=== PATIENT | female | born 1985 | race Caucasian/White ===

== ENCOUNTER 2018-05-22 17:45 | Inpatient (IN) | payer OTHER ==
[~2018-05-22] VITALS: Ht 160 cm; Wt 45.8 kg
[2018-05-22 18:51] LABS: BASOPHILS # (AUTO) 0.1 (0.0-0.1); BASOPHILS % 0.7 % (0.0-1.0); EOSINOPHILS # (AUTO) 0.1 (0.0-0.4); EOSINOPHILS % 1.6 % (0.0-6.0); HEMATOCRIT 36.7 % (34.2-44.1); HEMOGLOBIN 12.5 g/dL (12.0-16.0); LYMPHOCYTES # (AUTO) 2.7 (1.0-3.2); LYMPHOCYTES % 32.6 % (18.0-39.1); MEAN CORPUSCULAR HEMOGLOBIN 30.5 pg (28-32); MEAN CORPUSCULAR HGB CONC 34.1 g/dL (31-35); MEAN CORPUSCULAR VOLUME 89.5 fL (81-99); MONOCYTES # (AUTO) 0.8 (0.2-0.8); MONOCYTES % 9.2 % (4.4-11.3); NEUTROPHILS # (AUTO) 4.6 (2.1-6.9); NEUTROPHILS % 55.7 % (38.7-80.0); PLATELET COUNT 283 x10e3/uL (140-360); RED CELL DISTRIBUTION WIDTH 11.8 % (11.7-14.4)
[2018-05-22] MEDS ORDERED: FOCALIN10 MG PO (18:56)
[2018-05-22] MEDS ORDERED: XANAX0.5 MG PO (18:56)
[2018-05-22] MEDS ORDERED: VYVANSE60 MG PO (18:56)
[2018-05-22] MEDS ORDERED: AMBIEN10 MG PO (18:56)
[2018-05-22 19:14] LABS: ALANINE AMINOTRANSFERASE 16 IU/L (0-55); ALBUMIN 3.6 g/dL (3.5-5.0); ALBUMIN/GLOBULIN RATIO 1.3 (0.8-2.0); ALKALINE PHOSPHATASE 36 IU/L (40-150); ANION GAP 14.9 mmol/L (8-16); BLOOD UREA NITROGEN 17 mg/dL (7-26); BUN/CREATININE RATIO 19 (6-25); CALCIUM 8.7 mg/dL (8.4-10.2); CARBON DIOXIDE 22 mmol/L (22-29); CHLORIDE 103 mmol/L (98-107); CREATINE KINASE 983 IU/L (29-168); CREATININE, SERUM 0.91 mg/dL (0.57-1.11); EST GLOMERULAR FILTRATION RATE > 60 ML/MIN (60-); POTASSIUM 4.9 mmol/L (3.5-5.1); SODIUM 135 mmol/L (136-145)
[2018-05-22 19:15] LABS: GLUCOSE 58 mg/dL (74-118)
[2018-05-22 19:26] LABS: AMPHETAMINES SCREEN,URINE NEGATIVE (NEGATIVE); BENZODIAZEPINES SCREEN,URINE POSITIVE (NEGATIVE); PHENCYCLIDINE SCREEN,URINE NEGATIVE (NEGATIVE)
[2018-05-22] MEDS: SODIUM CHLORIDE 0.9% 1000ML 1,000 ML IV SCH (20:00)
[2018-05-22 20:58] VITALS: BP 132/84
--- NOTE | 2018-05-22 21:15 | Diagnostic Imaging Report ---
History:Numbness in legs, weakness and aphasia. Comparison studies:None Technique: CT head: Multidetector axial images were obtained from the foramen magnum to the vertex without contrast. The images were reconstructed using brain and bone algorithms. Thin section brain images were reformatted into coronal and sagittal planes. Axial images were obtained from the skull base to the vertex. Coronal and sagittal images reconstructed from the axial data. Multi-planar and 3-D reconstructed images were obtained. Dose modulation, iterative reconstruction, and/or weight based adjustment of the mA/kV was utilized to reduce the radiation dose to as low as reasonably achievable. Intravenous contrast: 100 cc of Isovue 370. Findings: CT head: Skull: No lytic or blastic. lesions. No surgical changes. Incidental 2 cm fat density lesion in left anterior temporal scalp, represents a lipoma. Parenchyma: No abnormal density. No acute hemorrhage, mass or acute major vascular territorial infarct. Arteries: No density suggestive of thrombosis. Dural sinuses: No abnormal density suggestive of thrombosis. Ventricles: No hydrocephalus or displacement. Extra-axial spaces: No abnormal density. Brain volume: Normal for age. Craniocervical junction: No mass, Chiari malformation, or basilar invagination. Sella: No mass. Paranasal/mastoid sinuses: Imaged portions unremarkable CTA head: Internal carotid arteries: Right: Patent. Left: Patent. Right A1 segment is absent, normal anatomical variant. Vertebral arteries: Patent. Basilar artery: Patent. Posterior cerebral arteries: Patent. Anatomical variants: Anterior communicating artery :Patent Posterior communicating arteries: Not visualized. Vertebral arteries: Codominant. IMPRESSION: CT head: No intracranial abnormality. CTA head: No intracranial vascular abnormality. Preliminary report was given by Dr. Zapata via phone to Dr. Oropeza at 06:15 p.m. on 05/22/2018. Signed by: Dr. Yessenia Armstrong M.D. on 05/22/2018 9:12 PM
[2018-05-22 21:30] VITALS: BP_SYST 132; BP_SYST 158; BP_DIAS 84; BP_DIAS 91
[2018-05-22] MEDS ORDERED: SODIUM CHLORIDE 0.9% 50ML 50 ML ONE (22:24)
[2018-05-22] MEDS ORDERED: IOPAMIDOL 370 MG/ML 200 ML INFUS..BTL INJ ONE (22:24)
[2018-05-23] VITALS: BP 125/66
[2018-05-23] MEDS ORDERED: ZOLPIDEM TARTRATE 10 MG TAB PO PRN (00:30)
[2018-05-23 04:00] VITALS: BP 111/72
[2018-05-23] MEDS: SODIUM CHLORIDE 0.9% 1000ML 1,000 ML IV SCH (06:00)
[2018-05-23 07:53] VITALS: BP 115/64
[2018-05-23] MEDS ORDERED: ALPRAZOLAM 0.5 MG TAB PO PRN ×2 (10:45→20:00)
[2018-05-23 11:00] LABS: BASOPHILS # (AUTO) 0.1 (0.0-0.1); BASOPHILS % 0.8 % (0.0-1.0); EOSINOPHILS # (AUTO) 0.1 (0.0-0.4); HEMATOCRIT 38.1 % (34.2-44.1); HEMOGLOBIN 12.7 g/dL (12.0-16.0); LYMPHOCYTES # (AUTO) 1.4 (1.0-3.2); LYMPHOCYTES % 22.4 % (18.0-39.1); MEAN CORPUSCULAR HEMOGLOBIN 30.1 pg (28-32); MEAN CORPUSCULAR HGB CONC 33.3 g/dL (31-35); MEAN CORPUSCULAR VOLUME 90.3 fL (81-99); MONOCYTES # (AUTO) 0.4 (0.2-0.8); MONOCYTES % 6.9 % (4.4-11.3); NEUTROPHILS # (AUTO) 4.3 (2.1-6.9); NEUTROPHILS % 67.6 % (38.7-80.0); PLATELET COUNT 260 x10e3/uL (140-360); RED BLOOD COUNT 4.22 x10e6/uL (3.6-5.1); RED CELL DISTRIBUTION WIDTH 11.8 % (11.7-14.4)
[2018-05-23] MEDS ORDERED: ALPRAZOLAM 1 MG TAB PO PRN ×2 (11:00→18:00)
[2018-05-23] MEDS ORDERED: GADOBENATE DIMEGLUMINE 1 ML IV ONE (11:02)
[2018-05-23 11:14] LABS: ANION GAP 11.4 mmol/L (8-16); BLOOD UREA NITROGEN 15 mg/dL (7-26); BUN/CREATININE RATIO 18 (6-25); CALCIUM 8.6 mg/dL (8.4-10.2); CARBON DIOXIDE 24 mmol/L (22-29); CHLORIDE 105 mmol/L (98-107); CREATININE, SERUM 0.85 mg/dL (0.57-1.11); EST GLOMERULAR FILTRATION RATE > 60 ML/MIN (60-); GLUCOSE 111 mg/dL (74-118); MAGNESIUM 1.5 MG/DL (1.3-2.1); POTASSIUM 4.4 mmol/L (3.5-5.1); SODIUM 136 mmol/L (136-145)
[2018-05-23 11:26] LABS: CREATINE KINASE 444 IU/L (29-168)
[2018-05-23 12:23] VITALS: BP 134/84
[2018-05-23] MEDS: DEXTROSE 5%/0.9% SOD CHL 1,000 ML IV SCH ×2 (14:00→20:52)
[2018-05-23] MEDS ORDERED: DEXTROSE 50% SYRINGE 50 ML IV PRN (14:15)
--- NOTE | 2018-05-23 15:27 | Consultation ---
DATE OF CONSULTATION: May 23, 2018 ENDOCRINE CONSULTATION PATIENT OF: [place] Thank you very much for referring this patient. HPI: This is a 32-year-old white female who is referred to me for evaluation of hypoglycemia. Patient came to the hospital with a history of extreme weakness, difficulty in walking, and impaired speech. She was seen in the emergency room and at that time, her blood sugar was found to be 54. Patient has had history of gestational diabetes when she had a twin about 7 years back. She does have some family history of diabetes mellitus. Patient has history of ADHD. She does not have any other major medical problems in the past. Presently, the patient complains of some weakness of both lower extremities, which is bilateral. There are no localizing symptoms. PHYSICAL EXAMINATION GENERAL: Today, the patient is alert, awake. She is thin built. VITALS: Her heart rate is around 68 and blood pressure is 120/80 mmHg. HEENT: Essentially unremarkable. Thyroid is palpable. Clinically, she looks near euthyroid. CHEST: Bilateral vesicular breathing. She has mild bronchospasm. CARDIAC: First and second heart sounds. There is no third or fourth heart sound. Ejection systolic murmur, grade 2/6. LABS: Her lab evaluation except for the blood sugar of 54 looks reasonably okay. CLINICAL IMPRESSION 1. Acute onset weakness, rule out transient ischemic attack. 2. Hypoglycemic episode, rule out inappropriate insulin secretion. PLAN: The plan at this time is to do a hemoglobin A1c, thyroid function test. Monitor her blood sugars closely. We will also do an ACTH level and a fasting C-peptide level. Patient is being evaluated by the neurology group as well. Thanks again for referring this patient. I will be following this patient with you. Job#: [id number] LPA
[2018-05-23 15:42] LABS: FREE T4 (FREE THYROXINE) 0.79 ng/dL (0.9-1.8); THYROID STIMULATING HORMONE 1.21 uIU/mL (0.350-4.940)
[2018-05-23 16:58] VITALS: BP 145/78
[2018-05-23] MEDS: INSULIN LISPRO 100 UNIT/1 ML 3ML VIAL SQ SCH ×2 (17:30→20:52)
[2018-05-23] MEDS: FAMOTIDINE 20 MG TAB PO SCH (17:30)
[2018-05-23 20:00] VITALS: BP 134/84
[2018-05-23] MEDS ORDERED: ONDANSETRON HCL INJ 2 MG/ML VIAL IV PRN (20:00)
[2018-05-23] MEDS ORDERED: ACETAMINOPHEN 325 MG TAB PO PRN (20:00)
[2018-05-23] MEDS ORDERED: HYDRALAZINE HCL 20 MG/ML VIAL IV PRN (20:00)
[2018-05-23] MEDS ORDERED: ACETAMINOPHEN/CODEINE 300MG - 30MG TAB PO PRN (20:00)
[2018-05-23] MEDS ORDERED: MIRTAZAPINE 15 MG TAB PO SCH (21:00)
[2018-05-24] VITALS: BP_SYST 112; BP_SYST 123; BP_DIAS 58; BP_DIAS 69
[2018-05-24] MEDS: DEXTROSE 5%/0.9% SOD CHL 1,000 ML IV SCH (01:57)
[2018-05-24 03:27] LABS: BASOPHILS % 0.3 % (0.0-1.0); EOSINOPHILS # (AUTO) 0.1 (0.0-0.4); EOSINOPHILS % 1.6 % (0.0-6.0); LYMPHOCYTES # (AUTO) 2.3 (1.0-3.2); LYMPHOCYTES % 25.7 % (18.0-39.1); MEAN CORPUSCULAR HEMOGLOBIN 30.2 pg (28-32); MEAN CORPUSCULAR HGB CONC 34.2 g/dL (31-35); MEAN CORPUSCULAR VOLUME 88.4 fL (81-99); MONOCYTES # (AUTO) 0.6 (0.2-0.8); MONOCYTES % 6.9 % (4.4-11.3); NEUTROPHILS # (AUTO) 5.9 (2.1-6.9); NEUTROPHILS % 65.3 % (38.7-80.0); PLATELET COUNT 250 x10e3/uL (140-360); RED CELL DISTRIBUTION WIDTH 11.8 % (11.7-14.4)
[2018-05-24 03:40] LABS: ANION GAP 11.7 mmol/L (8-16); BLOOD UREA NITROGEN 12 mg/dL (7-26); BUN/CREATININE RATIO 16 (6-25); CALCIUM 8.3 mg/dL (8.4-10.2); CARBON DIOXIDE 21 mmol/L (22-29); CHLORIDE 110 mmol/L (98-107); CREATININE, SERUM 0.77 mg/dL (0.57-1.11); EST GLOMERULAR FILTRATION RATE > 60 ML/MIN (60-); GLUCOSE 133 mg/dL (74-118); MAGNESIUM 1.6 MG/DL (1.3-2.1); POTASSIUM 3.7 mmol/L (3.5-5.1); SODIUM 139 mmol/L (136-145)
[2018-05-24] MEDS ORDERED: MIRTAZAPINE15 MG PO (07:26)
[2018-05-24] MEDS ORDERED: ALPRAZOLAM0.5 MG PO (07:26)
[2018-05-24] MEDS: INSULIN LISPRO 100 UNIT/1 ML 3ML VIAL SQ SCH ×2 (07:30→11:30)
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
[2018-05-24 08:20] VITALS: BP 120/73
[2018-05-24] MEDS: FAMOTIDINE 20 MG TAB PO SCH (08:39)
--- NOTE | 2018-05-24 08:47 | Consultation ---
DATE OF CONSULTATION: May 23, 2018 PSYCHIATRIC CONSULTATION REASON FOR CONSULTATION: To evaluate patient's mood. HISTORY OF PRESENTING ILLNESS: The patient is 32-year-old female admitted to the hospital for TIA. Psychiatric consultation is called to evaluate patient's mood. As per medical record, patient has history of depression, anxiety, ADHD, and PCOS. Upon evaluation today, patient is found to be in the room. She is alert, awake, and oriented to situation. She admits to feeling recently more depressed due to her relationship issues. She is undergoing marital problem and it is causing her to lose appetite. She claims that she has been losing 10 pounds over last month or so due to distress. She denies any problem with sleep. She claims that she needs Ambien to help with her sleep. She denies any feeling of hopelessness or helplessness. She denies any suicidal ideation. She denies any hallucinations. She denies any side effects of medications. PAST PSYCHIATRIC HISTORY: Patient reports history of depression, anxiety, and ADHD. She takes Focalin, Xanax, and Ambien at home. She denies past suicide attempt. She denies alcohol and drugs use. FAMILY HISTORY: Patient states her father has history of bipolar. SOCIAL HISTORY: Patient lives with her . MENTAL STATUS EXAMINATION: The patient is a young female, very thin. She is alert, awake, and oriented to situation. Her mood is anxious and depressed. She denies any suicidal or homicidal ideation. She denies any hallucination. Thought process is concrete. No delusion elicited. Memory is grossly impaired. Affect is congruent with mood. Insight and judgment are fair. CURRENT MEDICATIONS: 1. Ambien 10 mg p.o. nightly p.r.n. 2. Dextrose. 3. Insulin. 4. Famotidine. 5. Xanax 1 mg 2 times a day p.r.n. LABS: WBC 6.39, RBC 4.22, hemoglobin 12.7, hematocrit 38.1. Sodium 136, potassium 4.4, chloride 105, CO2 24, BUN 15, creatinine 0.85. AST 34, ALT 16. ASSESSMENT: Major depressive disorder, recurrent, moderate to severe without psychosis. PLAN: 1. To reduce Xanax from 1 twice a day p.r.n. to 0.5 mg p.o. q.6h. p.r.n. 2. Continue with Ambien p.r.n. 3. Add Remeron 15 mg p.o. nightly. 4. Supportive therapy. 5. Discussed with nursing staff. Thank you for this consultation. Dictated by FLORENCIO Cantor Job#: [id number]
[2018-05-24] MEDS ORDERED: OYST-CAL-D 500MG TABLET PO SCH (09:00)
[2018-05-24 10:11] VITALS: BP 120/73
[2018-05-24] MEDS ORDERED: BISACODYL 10 MG SUPP PR NR (10:30)
[2018-05-24 12:12] VITALS: BP 122/82
--- NOTE | 2018-05-24 15:36 | Discharge Summary ---
ADMISSION DIAGNOSES 1. Generalized weakness with expressive aphasia. 2. Depression. 3. Anxiety. 4. Anorexia. 5. Hypoglycemia. 6. Elevated CK. DISCHARGE DIAGNOSES 1. Generalized weakness with expressive aphasia. 2. Depression. 3. Anxiety. 4. Anorexia. 5. Hypoglycemia. 6. Elevated CK. 7. Ruled out cerebrovascular accident. 8. Ruled out transient ischemic attack. HISTORY: The patient has a history of PCOS, anxiety, depression, ADHD. A surgical history of C section x2. HOSPITAL COURSE: A 32-year-old female who complains of dizziness and weakness that began at 4 p.m. on Sunday. The symptoms resolved about 5:30 after eating. The symptoms returned the next day at 2:30 along with double vision, vertigo, difficulty walking and expressive aphasia. The patient admits to very little p.o. intake and often has dizziness and weakness which goes away after eating. No numbness, tingling or recent falls. On admission, the patient had a CAT scan of the brain and CTA of the neck that showed no intracranial abnormalities and no vascular abnormalities. Neurology consulted and per their assessment they think that the symptoms are psycho-somatic. MRI was then canceled. The patient was found to be hypoglycemic on admission. Her blood sugar was 54, which resolved after getting IV fluids. Endocrinology was consulted. He wants her to follow up in 2 weeks and he will run more tests to figure out the reason for the hypoglycemia. Psychiatry was also consulted for anorexic-type symptoms and anxiety and depression. Per psychiatry, the patient is to stop her ADHD meds and start Remeron only, and will follow up in 2 weeks. At the time of discharge, the patient is feeling much better. Her symptoms have practically resolved. She is ready to go home. She is eating more by mouth and says she feels better. She will follow up as discussed and agrees to discharge plan. Vital signs stable. The patient afebrile. Dictated by: Josette Resendez NP MARGE LANDEROS MD Job#: [id number]
== END 2018-05-24 13:55 | disposition home or self-care (01) | DRG 882 ==
LOC: ER 17:45 → MED/SURG 21:12
PROVIDERS: ADMIT Internal Medicine; ATTEND Internal Medicine
DX: F45.8 Other somatoform disorders (principal); R47.01 Aphasia; Z68.1 Body mass index [BMI] 19.9 or less, adult; F32.9 Major depressive disorder, single episode, unspecified; R63.0 Anorexia; F90.9 Attention-deficit hyperactivity disorder, unspecified type; Z79.4 Long term (current) use of insulin; F41.9 Anxiety disorder, unspecified; E16.2 Hypoglycemia, unspecified
CPT/HCPCS: 36415; 70496; 80048; 80053; 80307; 82024; 82550; 82553; 82948; 83036; 83735; 84439; 84443; 84484; 84681; 85025; 92523; 93005; 93306; 99284; J7030; J7042; Q9967

== ENCOUNTER 2018-08-01 20:19 | Emergency (ER) | payer OTHER ==
[~2018-08-01] VITALS: Ht 160 cm; Wt 43.1 kg
[~2018-08-01 20:19] MED LIST: ALPRAZOLAM0.5 MG PO; AMBIEN10 MG PO; FOCALIN10 MG PO; MIRTAZAPINE15 MG PO; VYVANSE60 MG PO; XANAX0.5 MG PO
--- OUTSIDE RECORDS SUMMARY | 2018-08-01 20:22 | XMS REPORT ---
Author Author [facility] Address Unknown Phone Unavailable Care Team Providers Care Sybase Developer Name Role Phone MARGE LANDEROS Unavailable Unavailable Problems This patient has no known problems. Allergies, Adverse Reactions, Alerts This patient has no known allergies or adverse reactions. Medications This patient has no known medications. Results Test Description Test Time Test Comments Text Results Atomic Results Result Comments CTA BRAIN 2018-05-22 20:54:00 [facility] [address] [address] Patient Name: GREGORY CASON MR #: [id number] : 1985 Age/Sex: 32/F Req #: [id number] Adm Physician: MARGE LANDEROS MD Ordered by: SANDRA CANCHOLA MD Report #: [id number] Location: MED/SURG Room/Bed: [facility] Procedure: [id number] CT/CTA BRAIN Exam Date: 05/22/18 Exam Time: 1750 REPORT STATUS: Signed History:Numbness in legs, weakness and aphasia. Comparison studies:None Technique: CT head: Multidetector axial images were obtained from the foramen magnum to the vertex without contrast. The images were reconstructed using brain and bone algorithms. Thin section brain images were reformatted into coronal and sagittal planes. Axial images were obtained from the skull base to the vertex. Coronal and sagittal images reconstructed from the axial data. Multi-planar and 3-D reconstructed images were obtained. Dose modulation, iterative reconstruction, and/or weight based adjustment of the mA/kV was utilized to reduce the radiation dose to as low as reasonably achievable. Intravenous contrast: 100 cc of Isovue 370. Findings: CT head: Skull: No lytic or blastic. lesions. No surgical changes. Incidental 2 cm fat density lesion in left anterior temporal scalp, represents a lipoma. Parenchyma: No abnormal density. No acute hemorrhage, mass or acute major vascular territorial infarct. Arteries: No density suggestive of thrombosis. Dural sinuses: No abnormal density suggestive of thrombosis. Ventricles: No hydrocephalus or displacement. Extra-axial spaces: No abnormal density. Brain volume: Normal for age. Craniocervical junction: No mass, Chiari malformation, or basilar invagination. Sella: No mass. Paranasal/mastoid sinuses: Imaged portions unremarkable CTA head: Internal carotid arteries: Right: Patent. Left: Patent. Right A1 segment is absent, normal anatomical variant. Vertebral arteries: Patent. Basilar artery: Patent. Posterior cerebral arteries: Patent. Anatomical variants: Anterior communicating artery :Patent Posterior communicating arteries: Not visualized. Vertebral arteries: Codominant. IMPRESSION: CT head: No intracranial abnormality. CTA head: No intracranial vascular abnormality. Preliminary report was given by Dr. Zapata via phone to Dr. Oropeza at 06:15 p.m. on 05/22/2018. Signed by: Dr. Yessenia Armstrong M.D. on 05/22/2018 9:12 PM Dictated By: YESSENIA ARMSTRONG MD 11 Transcribed By: PREM on 05/22/182111 COPY TO: SANDRA CANCHOLA MD
[2018-08-01] MEDS ORDERED: SODIUM CHLORIDE 0.9% 1000ML 1,000 ML IV SCH (20:45)
[2018-08-01 20:53] LABS: BASOPHILS # (AUTO) 0.1 (0.0-0.1); BASOPHILS % 0.6 % (0.0-1.0); EOSINOPHILS # (AUTO) 0.5 (0.0-0.4); EOSINOPHILS % 3.3 % (0.0-6.0); HEMATOCRIT 43.5 % (34.2-44.1); HEMOGLOBIN 14.2 g/dL (12.0-16.0); LYMPHOCYTES # (AUTO) 3.1 (1.0-3.2); LYMPHOCYTES % 21.5 % (18.0-39.1); MEAN CORPUSCULAR HGB CONC 32.6 g/dL (31-35); MEAN CORPUSCULAR VOLUME 88.8 fL (81-99); MONOCYTES # (AUTO) 1.2 (0.2-0.8); MONOCYTES % 8.2 % (4.4-11.3); NEUTROPHILS # (AUTO) 9.5 (2.1-6.9); PLATELET COUNT 335 x10e3/uL (140-360); RED CELL DISTRIBUTION WIDTH 12.6 % (11.7-14.4)
[2018-08-01 21:08] LABS: ALANINE AMINOTRANSFERASE 14 IU/L (0-55); ALBUMIN 3.9 g/dL (3.5-5.0); ALBUMIN/GLOBULIN RATIO 1.2 (0.8-2.0); ALKALINE PHOSPHATASE 74 IU/L (40-150); AMYLASE 40 U/L (25-125); ANION GAP 12.9 mmol/L (8-16); BLOOD UREA NITROGEN 18 mg/dL (7-26); BUN/CREATININE RATIO 21 (6-25); CALCIUM 9.5 mg/dL (8.4-10.2); CARBON DIOXIDE 30 mmol/L (22-29); CHLORIDE 99 mmol/L (98-107); CREATININE, SERUM 0.87 mg/dL (0.57-1.11); EST GLOMERULAR FILTRATION RATE > 60 ML/MIN (60-); GLUCOSE 82 mg/dL (74-118); LIPASE 7 U/L (8-78); POTASSIUM 3.9 mmol/L (3.5-5.1); SODIUM 138 mmol/L (136-145)
[2018-08-01 21:26] LABS: CREATINE KINASE MB 1.6 ng/mL (0-5.0)
--- NOTE | 2018-08-01 21:38 | Diagnostic Imaging Report ---
EXAM: CHEST SINGLE (PORTABLE), AP 1 view INDICATION: Dehydration, weakness/dizzy COMPARISON: None FINDINGS: LINES/TUBES: None LUNGS: No consolidations or edema. PLEURA: No effusions or pneumothorax. HEART AND MEDIASTINUM: Normal size and contour. BONES AND SOFT TISSUES: No acute findings. IMPRESSION: No acute thoracic abnormality. Signed by: Dr. Sarah Meyer M.D. on 08/01/2018 9:34 PM
[2018-08-01 21:58] LABS: MAGNESIUM 2.2 MG/DL (1.3-2.1); PHOSPHORUS 3.7 MG/DL (2.3-4.7)
[2018-08-01 23:57] LABS: BACTERIA,URINE MANY /HPF; BILIRUBIN,URINE NEGATIVE (NEGATIVE); CLARITY,URINE CLOUDY (CLEAR); COLOR,URINE YELLOW (YELLOW); EPITHELIAL CELLS,URINE FEW /LPF; KETONES,URINE NEGATIVE (NEGATIVE); LEUKOCYTE ESTERASE ,URINE 1+ (NEGATIVE); NITRITE,URINE POSITIVE (NEGATIVE); PROTEIN,URINE DIPSTICK NEGATIVE (NEGATIVE); RBC,URINE 0-5 /HPF (0-5); URINE UROBILINOGEN 0.2 mg/dL (0.2 - 1)
[2018-08-01 23:58] LABS: AMPHETAMINES SCREEN,URINE NEGATIVE (NEGATIVE); BENZODIAZEPINES SCREEN,URINE POSITIVE (NEGATIVE); PHENCYCLIDINE SCREEN,URINE NEGATIVE (NEGATIVE)
[2018-08-02] MEDS ORDERED: KEFLEX500 MG PO (00:08)
[2018-08-02 00:45] VITALS: BP 121/88
== END 2018-08-02 01:03 | disposition home or self-care (01) ==
LOC: ER 20:19
DX: R53.1 Weakness (principal); K52.9 Noninfective gastroenteritis and colitis, unspecified; F50.01 Anorexia nervosa, restricting type
CPT/HCPCS: 36415; 71045; 80053; 80307; 81001; 82150; 82550; 82553; 82948; 83690; 83735; 84100; 84484; 84702; 85025; 93005; 99284; J7030